=== PATIENT | female | born 1940 | race Caucasian/White ===

== ENCOUNTER 2018-03-02 21:10 | Emergency (ER) | payer MEDICARE ==
--- NOTE | 2018-03-02 22:12 | RADIOLOGY REPORT (SQ) ---
CT BRAIN AND CERVICAL SPINE WITHOUT IV CONTRAST HISTORY: Trauma. COMPARISON: None. TECHNIQUE: CT scan of the brain and cervical spine without contrast. This exam was performed according to our departmental dose-optimization program, which includes automated exposure control, adjustment of the mA and/or kV according to patient size and/or use of iterative reconstruction technique. FINDINGS: BRAIN: The ventricles, cisterns, and sulci are age-appropriate. Scattered areas of hypoattenuation within the periventricular white matter likely representing chronic microvascular ischemia. The pruitt-white matter differentiation is preserved without evidence of acute infarction. No acute intracranial hemorrhage or extra-axial fluid collection is seen. No midline shift, mass effect, or hydrocephalus. No air-fluid levels are seen in the sinuses. No calvarial fracture. CERVICAL SPINE: No acute fracture. Straightening of the normal cervical lordosis, which may be due to cervical collar, muscle spasm, or patient positioning. No static listhesis. Multilevel degenerative disc disease along with facet arthropathy is present. No advanced spinal canal stenosis. No prevertebral soft tissue swelling. IMPRESSION: 1. No acute intracranial abnormality. 2. No acute fracture or static listhesis of the cervical spine.
--- NOTE | 2018-03-02 23:17 | ER Document Report ---
ED General - General Chief Complaint: Fall Stated Complaint: FALL/HEAD LACERATION Time Seen by Provider: 03/02/18 22:55 Mode of Arrival: Ambulatory Information source: Patient Notes: This is a 77-year-old female with a history of coronary artery disease on Plavix who presents to the emergency room after a fall at home. Patient states she got up from the chair too quickly and landed on the floor. She denies any loss of consciousness. She states that she felt fine but her daughter was nervous because she is on blood thinner. She does have a small closed laceration and contusion to the left side of the head. TRAVEL OUTSIDE OF THE [place] IN LAST 30 DAYS: No - HPI Onset: Just prior to arrival Onset/Duration: Sudden Quality of pain: No pain Severity: Mild Pain Level: 1 Associated symptoms: Headache. denies: Chest pain, Shortness of breath Exacerbated by: Denies Relieved by: Denies Similar symptoms previously: No Recently seen / treated by doctor: No - Related Data Allergies/Adverse Reactions: butorphanol tartrate [From Stadol] Allergy (Verified 05/19/12 13:19) trouble breathing Past Medical History - General Information source: Patient - Social History Smoking Status: Former Smoker Cigarette use (# per day): No Chew tobacco use (# tins/day): No Frequency of alcohol use: None Drug Abuse: None Lives with: Family Family History: None Patient has suicidal ideation: No Patient has homicidal ideation: No - Past Medical History Cardiac Medical History: Reports: Hx Heart Attack - 2 STENTS PLACED, Hx Hypertension Pulmonary Medical History: Denies: Hx Asthma Neurological Medical History: Denies: Hx Cerebrovascular Accident, Hx Seizures Endocrine Medical History: Reports: Hx Diabetes Mellitus Type 2 Renal/ Medical History: Denies: Hx Peritoneal Dialysis GI Medical History: Denies: Hx Hepatitis, Hx Hiatal Hernia, Hx Ulcer Infectious Medical History: Denies: Hx Hepatitis Past Surgical History: Reports: Hx Appendectomy, Hx Cholecystectomy, Hx Hysterectomy. Denies: Hx Mastectomy, Hx Open Heart Surgery, Hx Pacemaker Review of Systems - Review of Systems Constitutional: denies: Chills, Fever EENT: See HPI Cardiovascular: No symptoms reported Respiratory: No symptoms reported Gastrointestinal: No symptoms reported Genitourinary: No symptoms reported Female Genitourinary: No symptoms reported Musculoskeletal: No symptoms reported Skin: No symptoms reported Hematologic/Lymphatic: No symptoms reported Neurological/Psychological: No symptoms reported Physical Exam - Vital signs Vitals: Temp Pulse Resp BP Pulse Ox 98.2 F 72 18 151/51 H 98 03/02/18 21:25 03/02/18 21:25 03/02/18 21:25 03/02/18 21:25 03/02/18 21:25 Notes: Physical exam: GENERAL: 77-year-old female, alert and oriented x3, no acute distress HEAD: Patient does have a 1 cm closed laceration to the left parietal area with contusion. There is no bony crepitus or obvious skull fracture. EYES: Pupils equal round and reactive to light, extraocular movements intact, sclera anicteric, conjunctiva are normal. ENT: TMs normal, nares patent, oropharynx clear without exudates. Moist mucous membranes. NECK: Normal range of motion, supple without obvious mass or JVD. LUNGS: Breath sounds clear to auscultation bilaterally and equal. No wheezes rales or rhonchi. HEART: Regular rate and rhythm without murmurs, rubs or gallops. ABDOMEN: Soft, normoactive bowel sounds. No tenderness to palpation. No guarding, no rebound. No masses appreciated. EXTREMITIES: Normal range of motion, no pitting or edema. No clubbing or cyanosis. NEUROLOGICAL: Cranial nerves II through XII grossly intact. Normal speech, moving all extremities. PSYCH: Normal mood, normal affect. SKIN: Warm, Dry, normal turgor, no rashes or lesions noted. Course - Re-evaluation Re-evalutation: 03/03/18 03:05 Tetanus is up-to-date as per daughter (6 years ago). Wound is small, closed and non-dirty. - Vital Signs Vital signs: Temp Pulse Resp BP Pulse Ox 98.1 F 70 18 128/82 H 99 03/02/18 23:42 03/02/18 23:42 03/02/18 23:42 03/02/18 23:42 03/02/18 23:42 - Diagnostic Test Radiology reviewed: Image reviewed, Reports reviewed - T of the head and CT of the cervical spine show no bleed or bony injury Discharge - Discharge Clinical Impression: Head contusion status post fall Condition: Stable Disposition: HOME, SELF-CARE Additional Instructions: As discussed, the CT of the head showed no bleeding. CT of the neck showed no acute bony injuries. I would continue current medicines. Be careful of sudden changes in position: For example getting up fast from bed or from a chair. I do want you to follow-up with your primary care doctor: Call tomorrow for an appointment this week. Return to the emergency room for worsening headache, nausea, vomiting, changes in mental status or any concerns or getting worse.
[2018-03-02 23:43] VITALS: BP 128/82
--- NOTE | 2018-03-03 07:25 | EKG REPORT ---
SEVERITY:- ABNORMAL ECG - SINUS RHYTHM LEFT VENTRICULAR HYPERTROPHY ABNORMAL T, CONSIDER ISCHEMIA, LATERAL LEADS : Confirmed by: Jeremías Sutton MD 03-Mar-2018 07:25:06
== END 2018-03-02 23:47 | disposition home or self-care (01) ==
LOC: ER 21:10
DX: S00.93XA Contusion of unspecified part of head, initial encounter (principal); R51 Headache; W19.XXXA Unspecified fall, initial encounter; Y92.009 Unspecified place in unspecified non-institutional (private) residence as the place of occurrence of the external cause; I25.10 Atherosclerotic heart disease of native coronary artery without angina pectoris; Z79.02 Long term (current) use of antithrombotics/antiplatelets; Z87.891 Personal history of nicotine dependence; I25.2 Old myocardial infarction; E11.9 Type 2 diabetes mellitus without complications
CPT/HCPCS: 70450; 72125; 93005; 93010; 99284